=== PATIENT | female | born 1950 | race Caucasian/White ===

== ENCOUNTER 2018-03-04 12:49 | Emergency (ER) | payer SELFPAY ==
[~2018-03-04] VITALS: Ht 154.9 cm; Wt 65.8 kg
[2018-03-04 13:09] VITALS: BP_SYST 136
--- NOTE | 2018-03-04 13:17 | NUR ---
Patient to ER bed 06 to gown for evaluation. Side rails up.
--- NOTE | 2018-03-04 13:20 | NUR ---
Patient arrived via POV, AAOx4, and ambulatory with weak C/C left hip pain radiating down the back of her left thigh that has gotten worse since onset 7 days ago. The patient states that she is originally from [place] and here visiting family for the holidays. She denies recent trauma or falls or recent heavy work. She denies any chronic health problems. No alleviating factors.
--- NOTE | 2018-03-04 13:21 | NUR ---
ER at bedside examining patient.
[2018-03-04] MEDS ORDERED: KETOROLAC TROMETHAMINE 60 MG/2 ML VIAL IM ONE (14:00)
[2018-03-04 16:00] VITALS: BP_SYST 131
--- NOTE | 2018-03-04 16:00 | NUR ---
Patient given written and verbal discharge instructions and verbalizes understanding. ER MD discussed with patient the results and treatment provided. Patient in stable condition. ID arm band removed. Rx of Medrol and [place] 5-325 given. Patient educated on pain management and to follow up with PMD. Pain Scale 3/10. Opportunity for questions provided and answered. Medication side effect fact sheet provided.
== END 2018-03-04 16:00 | disposition home or self-care (01) ==
LOC: SED 12:49
DX: M54.42 Lumbago with sciatica, left side (principal)
CPT/HCPCS: 72110; 96372; 99283; J1885